=== PATIENT | female | born 1965 | race Two or more races ===

== ENCOUNTER 2018-07-03 19:54 | Emergency (ER) | payer OTHER ==
[~2018-07-03] VITALS: Ht 157.5 cm; Wt 63.5 kg
[2018-07-03] MEDS ORDERED: MATULANE50 MG (20:32)
[2018-07-03] MEDS ORDERED: ZESTRIL20 MG (20:32)
== END 2018-07-04 00:11 | disposition home or self-care (01) ==
LOC: ER 19:54
DX: R42 Dizziness and giddiness (principal)

== ENCOUNTER 2021-08-07 10:44 | Emergency (ER) | payer OTHER ==
[~2021-08-07] VITALS: Ht 160 cm; Wt 68.0 kg
[~2021-08-07 10:44] MED LIST: MATULANE50 MG; ZESTRIL20 MG
== END 2021-08-07 17:43 ==
LOC: ER 10:44
DX: U07.1 COVID-19 (principal)